=== PATIENT | female | born 1950 | race Hispanic/Latino ===

== ENCOUNTER 2019-05-28 11:28 | Day surgery (SDC) | payer MEDICARE ==
[~2019-05-28 11:28] MED LIST: APRACLONIDINE 1% OPHTH SOLN DROPERETTE ONE; PHENYLEPHRINE 10% OPHTH SOLN 5 ML ONE; TROPICAMIDE 1% OPHTH SOLN 3 ML ONE
[2019-05-28] MEDS ORDERED: APRACLONIDINE 1% OPHTH SOLN DROPERETTE OD ONE (11:38)
[2019-05-28] MEDS ORDERED: TROPICAMIDE 1% OPHTH SOLN 3 ML OD ONE (11:40)
[2019-05-28] MEDS ORDERED: PHENYLEPHRINE 10% OPHTH SOLN 5 ML OD ONE (11:41)
[2019-05-28 11:52] VITALS: BP 154/77
== END 2019-05-28 13:20 | disposition home or self-care (01) ==
LOC: OR 11:28
PROVIDERS: ATTEND Specialist
DX: H26.491 Other secondary cataract, right eye (principal); K21.9 Gastro-esophageal reflux disease without esophagitis; M19.90 Unspecified osteoarthritis, unspecified site; Z72.89 Other problems related to lifestyle; Z79.899 Other long term (current) drug therapy; Z98.890 Other specified postprocedural states; Z79.82 Long term (current) use of aspirin; Z98.41 Cataract extraction status, right eye; Z98.42 Cataract extraction status, left eye; Z98.82 Breast implant status; Z90.49 Acquired absence of other specified parts of digestive tract; Z90.710 Acquired absence of both cervix and uterus